=== PATIENT | male | born 1950 | race American Indian/Alaskan Native ===

== ENCOUNTER 2016-12-06 03:30 | Emergency (ER) | payer BC ==
[2016-12-06 04:29] LABS: Hematocrit 45.4 % (35.5-45.6); Hemoglobin 15.5 gm/dl (11.8-15.2); Mean Corpuscular HGB Conc 34 % (32-34); Mean Corpuscular Hemoglobin 30 pg (28-32); Mean Corpuscular Volume 87 fl (84-94); Platelet Count 206 K/mm3 (140-440); Red Cell Distribution Width 14.1 % (13.2-15.2)
[2016-12-06 04:42] LABS: Bilirubin,Urine NEG (Negative); Blood,Urine LG (Negative); Ketones,Urine TR mg/dL (Negative); Leukocyte Esterase,Urine NEG (Negative); Nitrite,Urine NEG (Negative); RBC,Urine < 1.0 /HPF (0.0-6.0); Urobilinogen,Urine < 2.0 mg/dL (<2.0)
[2016-12-06 04:43] LABS: WBC,Urine < 1.0 /HPF (0.0-6.0)
[2016-12-06] MEDS ORDERED: ZOFRAN IV ONE ×2 (04:47→06:16)
[2016-12-06] MEDS ORDERED: TORADOL IV ONE (04:47)
[2016-12-06 04:48] LABS: Alanine Aminotransferase 18 units/L (7-56); Albumin 4.7 g/dL (3.9-5); Albumin/Globulin Ratio 1.7 %; Alkaline Phosphatase 50 units/L (35-129); Anion Gap 20 mmol/L; BUN/Creatinine Ratio 11.76; Blood Urea Nitrogen 20 mg/dL (9-20); Calcium 9.5 mg/dL (8.4-10.2); Carbon Dioxide 24 mmol/L (22-30); Chloride 100.6 mmol/L (98-107); Glucose 140 mg/dL (75-100); Lipase 10 units/L (13-60); Potassium 4.1 mmol/L (3.6-5.0); Sodium 140 mmol/L (137-145); Total Protein 7.4 g/dL (6.3-8.2)
[2016-12-06] MEDS ORDERED: NACL 0.9% 1000 ML 1,000 ML IV ONE (04:48)
[2016-12-06 05:15] LABS: Basophils % (Manual) 0 % (0.0-1.8); Blastocytes % (Manual) 0 %; Diff Status Complete; Eosinophils % (Manual) 0 % (0.0-4.3); Platelet Estimate Consistent w Auto; RBC Morphology Normal
--- NOTE | 2016-12-06 05:47 | Cat Scan Report ---
FINAL REPORT EXAM: CT ABDOMEN PELVIS WO CON HISTORY: pain TECHNIQUE: Routine imaging was obtained of the abdomen pelvis without IV contrast. FINDINGS: The lung bases are clear. Pleural fluid is not seen. The liver, spleen, adrenal glands, gallbladder, and pancreas appear normal. Both kidneys reveal nonobstructing calcifications body. There is moderate right-sided hydronephrosis with perinephric stranding. There is a partially obstructing 5.9 millimeter stone in the mid right ureter at the L3 level. The bowel loops appear normal. Free fluid is not seen. The appendix is not enlarged. The prostate gland and bladder appear normal. Free fluid is not seen. There is no evidence of lymphadenopathy. 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 IMPRESSION: Moderate right-sided hydronephrosis secondary to a 5.9 millimeter stone in the right ureter at the L3 level. Additional small nonobstructing calcifications in both kidneys.
[2016-12-06] MEDS ORDERED: SUBLIMAZE IV ONE (06:16)
--- NOTE | 2016-12-06 06:21 | Emergency Department Report ---
HPI - General Chief Complaint: Abdominal Pain Time Seen by Provider: 12/06/16 06:04 - HPI HPI: Room 5 The patient is a 66-year-old male presenting with a chief complaint of abdominal pain. The patient states last night at approximately 21:30 he developed pain in his right flank radiating to the right back. Patient described the pain as pulsating and throbbing in nature. Patient states the pain began to increase and he developed nausea and vomiting. The patient states he then decided to come to the ED for evaluation. Patient denies any previous episodes of same pain. Patient denies any history of fever, dysuria or hematuria. The patient states his pain was initially 10/10 upon arrival. Patient received Toradol prior to my evaluation states his pain is decreased to 7/10 Location: Right flank Duration: Constant since 21:30 Quality: Throbbing Severity: 7/10 Modifying factors: [see above] Context: [see above] Mode of transportation: [not driving] ED Past Medical Hx - Past Medical History Hx Asthma: Yes - Surgical History Past Surgical History?: Yes Additional Surgical History: left hip replacement, herniorrhaphy - Family History Family history: no significant - Social History Smoking Status: Never Smoker Substance Use Type: None - Medications Home Medications: Home Medications Medication Instructions Recorded Confirmed Last Taken Type Albuterol Sulfate [Albuterol 0.63% 12/03/12 12/03/12 12/03/12 09:00 History NEBS] Cephalexin [Keflex] 500 mg PO QID #20 capsule 12/03/12 Unknown Rx Fluticasone/Xxgmizlwez87/21Mcg 2 puff IH BID 12/03/12 12/03/12 12/03/12 09:00 History [Advair HFA 45/21 mcg] Hydrocodone Bit/Acetaminophen 1 each PO Q6H #14 tablet 12/03/12 Unknown Rx [Lortab 5-500 Tablet] Ondansetron [Zofran ODT TAB] 8 mg PO Q8HR #20 tab.rapdis 12/06/16 Unknown Rx oxyCODONE /ACETAMINOPHEN [Percocet 1 - 2 tab PO Q6HR PRN #20 tablet 12/06/16 Unknown Rx 5/325] ED Review of Systems ROS: Stated complaint: ABDOMINAL PAIN,BACK PAIN Other details as noted in HPI Comment: All other systems reviewed and negative Constitutional: denies: chills, fever Eyes: denies: eye pain, eye discharge, vision change ENT: denies: ear pain, throat pain Respiratory: denies: cough, shortness of breath, wheezing Cardiovascular: denies: chest pain, palpitations Endocrine: no symptoms reported Gastrointestinal: abdominal pain, nausea, vomiting Genitourinary: denies: urgency, dysuria Musculoskeletal: back pain Skin: denies: rash, lesions Neurological: denies: headache, weakness, paresthesias Psychiatric: denies: anxiety, depression Hematological/Lymphatic: denies: easy bleeding, easy bruising Physical Exam - Physical Exam Vital Signs: Vital Signs 12/06/16 12/06/16 12/06/16 03:35 03:52 04:22 Temperature 97.6 F 97.6 F Pulse Rate 63 61 Respiratory 18 16 Rate Blood Pressure 130/79 130/79 151/77 Blood Pressure [Left] O2 Sat by Pulse 98 98 Oximetry 12/06/16 12/06/16 12/06/16 04:25 04:46 05:00 Temperature 98.6 F Pulse Rate 59 L Respiratory 24 Rate Blood Pressure 152/81 141/86 Blood Pressure 152/81 [Left] O2 Sat by Pulse 100 100 100 Oximetry 12/06/16 12/06/16 12/06/16 05:05 05:15 05:30 Temperature Pulse Rate Respiratory 24 Rate Blood Pressure 129/71 121/69 Blood Pressure [Left] O2 Sat by Pulse 94 96 Oximetry Physical Exam: GENERAL: The patient is well-developed well-nourished male lying on stretcher not appearing to be in acute distress. [] HEENT: Normocephalic. Atraumatic. Extraocular motions are intact. Patient has moist mucous membranes. NECK: Supple. Trachea midline CHEST/LUNGS: There is no respiratory distress noted. HEART/CARDIOVASCULAR: Regular. There is no tachycardia. There is no gallop rub or murmur. ABDOMEN: Abdomen is soft, nontender. Patient has normal bowel sounds. There is no abdominal distention. SKIN: There is no rash. There is no edema. There is no diaphoresis. NEURO: The patient is awake, alert, and oriented. The patient is cooperative. The patient has normal speech MUSCULOSKELETAL: There is no evidence of acute injury. ED Course Vital Signs 12/06/16 12/06/16 12/06/16 03:35 03:52 04:22 Temperature 97.6 F 97.6 F Pulse Rate 63 61 Respiratory 18 16 Rate Blood Pressure 130/79 130/79 151/77 Blood Pressure [Left] O2 Sat by Pulse 98 98 Oximetry 12/06/16 12/06/16 12/06/16 04:25 04:46 05:00 Temperature 98.6 F Pulse Rate 59 L Respiratory 24 Rate Blood Pressure 152/81 141/86 Blood Pressure 152/81 [Left] O2 Sat by Pulse 100 100 100 Oximetry 12/06/16 12/06/16 12/06/16 05:05 05:15 05:30 Temperature Pulse Rate Respiratory 24 Rate Blood Pressure 129/71 121/69 Blood Pressure [Left] O2 Sat by Pulse 94 96 Oximetry ED Medical Decision Making - Lab Data Result diagrams: 12/06/16 04:07 12/06/16 04:07 Laboratory Tests 12/06/16 12/06/16 12/06/16 04:07 04:07 04:15 WBC 13.0 H RBC 5.20 H Hgb 15.5 H Hct 45.4 MCV 87 MCH 30 MCHC 34 RDW 14.1 Plt Count 206 Add Manual Diff Complete Total Counted 100 Seg Neutrophils % [employer] Seg Neuts % (Manual) 83.0 H Band Neutrophils % 5.0 Lymphocytes % (Manual) 7.0 L Reactive Lymphs % (Man) 0 Monocytes % (Manual) 5.0 Eosinophils % (Manual) 0 Basophils % (Manual) 0 Metamyelocytes % 0 Myelocytes % 0 Promyelocytes % 0 Blast Cells % 0 Nucleated RBC % Not Reportable Seg Neutrophils # Man 10.8 H Band Neutrophils # 0.7 Lymphocytes # (Manual) 0.9 L Abs React Lymphs (Man) 0.0 Monocytes # (Manual) 0.7 Eosinophils # (Manual) 0.0 Basophils # (Manual) 0.0 Metamyelocytes # 0.0 Myelocytes # 0.0 Promyelocytes # 0.0 Blast Cells # 0.0 WBC Morphology Not Reportable Hypersegmented Neuts Not Reportable Hyposegmented Neuts Not Reportable Hypogranular Neuts Not Reportable Smudge Cells Not Reportable Toxic Granulation Not Reportable Toxic Vacuolation Not Reportable Dohle Bodies Not Reportable Pelger-Huet Anomaly Not Reportable [place] Rods Not Reportable Platelet Estimate Consistent w auto Clumped Platelets Not Reportable Plt Clumps, EDTA Not Reportable Large Platelets Not Reportable Giant Platelets Not Reportable Platelet Satelliting Not Reportable Plt Morphology Comment Not Reportable RBC Morphology Normal Dimorphic RBCs Not Reportable Polychromasia Not Reportable Hypochromasia Not Reportable Poikilocytosis Not Reportable Anisocytosis Not Reportable Microcytosis Not Reportable Macrocytosis Not Reportable Spherocytes Not Reportable Pappenheimer Bodies Not Reportable Sickle Cells Not Reportable Target Cells Not Reportable Tear Drop Cells Not Reportable Ovalocytes Not Reportable Helmet Cells Not Reportable Arm[employer] Bodies Not Reportable [place] Rings Not Reportable [place] Cells Not Reportable Bite Cells Not Reportable Crenated Cell Not Reportable Elliptocytes Not Reportable Acanthocytes (Spur) Not Reportable Rouleaux Not Reportable Hemoglobin C Crystals Not Reportable Schistocytes Not Reportable Malaria parasites Not Reportable Sohan Bodies Not Reportable Hem Pathologist Commnt No Sodium 140 Potassium 4.1 Chloride 100.6 Carbon Dioxide 24 Anion Gap 20 BUN 20 Creatinine 1.7 H Estimated GFR 49 BUN/Creatinine Ratio 11.76 Glucose 140 H Calcium 9.5 Total Bilirubin 0.70 AST 24 ALT 18 Alkaline Phosphatase 50 Total Protein 7.4 Albumin 4.7 Albumin/Globulin Ratio 1.7 Lipase 10 L Urine Color Yellow Urine Turbidity Clear Urine pH 6.0 Ur Specific [place] 1.027 Urine Protein 30 mg/dl Urine Glucose (UA) 50 Urine Ketones Tr Urine Blood Lg Urine Nitrite Neg Urine Bilirubin Neg Urine Urobilinogen < 2.0 Ur Leukocyte Esterase Neg Urine WBC (Auto) < 1.0 Urine RBC (Auto) < 1.0 - Radiology Data Radiology results: report reviewed (CT abdomen and pelvis), image reviewed (CT abdomen and pelvis) CT abdomen and pelvis (read by radiologist)-moderate right-sided hydronephrosis secondary to 5.9 mm stone in the right ureter at the L3 level. Additional small nonobstructing calcifications in both kidneys. - Differential Diagnosis renal colic, pyelonephritis, appendicitis Critical care attestation.: If time is entered above; I have spent that time in minutes in the direct care of this critically ill patient, excluding procedure time. ED Disposition Clinical Impression: Renal colic on right side, Acute right flank pain, Nausea & vomiting, Renal insufficiency Disposition: - TO HOME OR SELFCARE Is pt being admited?: No Does the pt Need Aspirin: No Condition: Stable Instructions: Renal Colic (ED) Additional Instructions: Return to the emergency department immediately should you develop worsening symptoms, fever, inability to tolerate food or liquid or any other concerns. Prescriptions: Ondansetron [Zofran ODT TAB] 8 mg PO Q8HR #20 tab.rapdis oxyCODONE /ACETAMINOPHEN [Percocet 5/325] 1 - 2 tab PO Q6HR PRN #20 tablet PRN Reason: Pain Referrals: PRIMARY CAREMD [Primary Care Provider] - 3-5 Days GOYO PARISH MD [Staff Physician] - 3-5 Days (Dr. Parish is a urologist. Please follow up with him for further evaluation) Time of Disposition: 06:24
[2016-12-06 06:39] VITALS: BP 136/83
== END 2016-12-06 06:38 | disposition home or self-care (01) ==
LOC: ED 03:30
DX: N23 Unspecified renal colic (principal); N28.9 Disorder of kidney and ureter, unspecified
CPT/HCPCS: 36415; 74176; 80053; 81001; 83690; 85007; 85025; 96361; 96374; 96375; 96376; 99284; J1885; J2405; J3010; J7030